=== PATIENT | female | born 1955 | race Caucasian/White ===

== ENCOUNTER → 2018-07-22 | Outpatient (CLI) | payer BC ==
--- NOTE | 2018-07-22 12:55 | RAD ---
Examination: Ultrasound pelvis HISTORY: History of postmenopausal bleeding COMPARISON: None available FINDINGS: The uterus measures 8.1 x 5.2 x 3.6 cm. The right ovary measures 2.8 x 2.2 x 1.7 cm. Left ovary measures 2.3 x 2.5 x 1.6 cm. Few nabothian cysts identified the largest measuring 2.2 cm. The endometrium is 4.8 mm in thickness.There is a 1.8 cm and a 2.3 cm heterogeneous echogenicity identified in the uterus likely fibroids. IMPRESSION: 1. Few fibroids identified in the uterus with the largest measuring 2.3 cm. 2. Nabothian cyst measuring 2.2 cm in the cervix 3. The endometrium measures 4.8 mm in thickness which is within normal limits of dimension. Electronically signed by: Scotty Goldsmith MD (07/22/2018 12:51 PM) [place] [id number]
== END | disposition home or self-care (01) ==
LOC: US 08:48
PROVIDERS: ATTEND Physician Assistant Medical
DX: D25.9 Leiomyoma of uterus, unspecified (principal); N88.8 Other specified noninflammatory disorders of cervix uteri
CPT/HCPCS: 76830; 76856

== ENCOUNTER → 2019-01-24 | Outpatient (CLI) | payer BC ==
--- NOTE | 2019-01-24 15:35 | RAD ---
AP view of the pelvis and frog-leg views of both hips Clinical indications: Bilateral hip pain Right hip: No acute fracture or dislocation or lytic process evident. There is minimal degenerative spurring of the inferior aspect of the left femoral head. No other significant arthritic change is seen. Left hip: No acute fracture or dislocation or lytic process is seen. There is minimal degenerative spurring of the inferior aspect of the femoral head. No other significant arthritic change is seen. IMPRESSION: Minimal degenerative spurring of the femoral heads bilaterally. Electronically signed by: Reilly Avila MD (01/24/2019 3:32 PM) [facility]
== END | disposition home or self-care (01) ==
LOC: RAD 09:06
PROVIDERS: ATTEND Physician Assistant Medical
DX: M76.892 Other specified enthesopathies of left lower limb, excluding foot (principal); M76.891 Other specified enthesopathies of right lower limb, excluding foot
CPT/HCPCS: 73521

== ENCOUNTER → 2021-03-06 | Outpatient (CLI) | payer BC ==
--- NOTE | 2021-03-06 11:47 | RAD ---
EXAM: DUAL ENERGY X-RAY ABSORPTIOMETRY (DEXA). HISTORY: Postmenopausal screening. FINDINGS: The lowest measured T-score is -1.6 in the right femoral neck, based on a bone mineral dens ity of 0.748 g/cm^2. Refer to the worksheets for full detail. In comparison with the prior study of 04/08/2016, average bone mineral density at the lumbar spine little s changed +1.6%, while the average density at the hips has changed -7.7%. IMPRESSION: Low bone mass. Bone mineral density yields a T-score between -1.0 and -2.5. Fracture risk is increase d. FRAX was not calculated. METHODOLOGY: Dual energy x-ray absorptiometry was performed to measure bone mineral density. The foll owing analysis is based on the 2019 Official Positions of the International Society for Clinical Dens itometry: Measurements of the hips and the average of L1-L4 are preferred. When the spine and/or hip cannot be feasibly measured or interpreted, or in the setting of hyperparathyroidism, distal radial bone minera l density may be measured. The lumbar spine T-score is based on the average bone mineral density of L1-L4. In the setting of art ifact or anatomic abnormality, some lumbar levels may be excluded, and the remaining levels used for calculation. A single lumbar level is not used for diagnosis, and if only a single level is available for assessment, another anatomic site will be used to assign a diagnosis. The hip T-score is based on the bone mineral density measurement of the femoral neck or total proxima l femur of either side, whichever is lowest. Bilateral mean values are not used for diagnosis. The forearm T-score is derived from 33% of the distal radius of the nondominant forearm. For postmenopausal and perimenopausal women, and men age 50 or older, of all ethnic groups, T-scores are calculated through comparison of the current measurement with the NHANES III database standard fo r females aged 20-29 years. The lowest T-score of the evaluated anatomic sites is used to a ssign a diagnosis based on the World Health Organization densitometric classification. In premenopausal females and males younger than age 50, a Z-score is calculated based on population s pecific reference data for patient sex and self-reported ethnicity. Electronically signed by: Fe Garcia MD (03/06/2021 11:44 AM) [id number]
== END ==
LOC: DXRAD 09:58
PROVIDERS: ATTEND Physician Assistant Medical
DX: M81.8 Other osteoporosis without current pathological fracture (principal); Z78.0 Asymptomatic menopausal state; Z13.89 Encounter for screening for other disorder; N95.9 Unspecified menopausal and perimenopausal disorder
CPT/HCPCS: 77080